=== PATIENT | female | born 1975 | race Caucasian/White ===

== ENCOUNTER → 2023-06-03 10:30 | Outpatient (REF) | payer BC, SELFPAY | LOC: HWRAD 10:30 | PROVIDERS: ATTENDING PHYSICIAN Physician Assistant | DX: R14.0 Abdominal distension (gaseous) (principal); N92.6 Irregular menstruation, unspecified | CPT/HCPCS: 76830; 76856 ==

== ENCOUNTER → 2025-02-01 07:19 | Outpatient (REF) | payer OTHER, SELFPAY | LOC: HWWDC 07:19 | PROVIDERS: ATTENDING PHYSICIAN Physician Assistant | DX: Z12.31 Encounter for screening mammogram for malignant neoplasm of breast (principal) | CPT/HCPCS: 77063; 77067 ==